=== PATIENT | female | born 1965 | race Caucasian/White ===

== ENCOUNTER 2019-10-07 12:04 | Emergency (ER) | payer BC ==
[~2019-10-07] VITALS: Ht 170.2 cm; Wt 59.0 kg
[2019-10-07] MEDS ORDERED: GRALISE600 MG (12:33)
[2019-10-07] MEDS ORDERED: SYNTHROID75 MCG PO (12:34)
[2019-10-07] MEDS ORDERED: BACLOFEN5 GM (12:34)
[2019-10-07] MEDS ORDERED: AUBAGIO14 MG PO (12:34)
[2019-10-07] MEDS ORDERED: WELLBUTRIN XL300 MG PO (12:35)
[2019-10-07] MEDS ORDERED: ORPHENADRINE C100 MG PO (16:13)
[2019-10-07] MEDS ORDERED: PERCOCET 5-3251 EACH PO (16:13)
[2019-10-07] MEDS ORDERED: MEDROLPACK PO (16:13)
== END 2019-10-07 18:43 | disposition home or self-care (01) ==
LOC: ER 12:04
DX: G35 Multiple sclerosis (principal); M25.551 Pain in right hip; M54.5 Low back pain; M79.651 Pain in right thigh